=== PATIENT | female | born 1950 | race African-American/Black ===

== ENCOUNTER 2019-05-28 13:35 | Emergency (ER) | payer OTHER, MEDICARE ==
[2019-05-28 13:55] VITALS: BP 152/82
--- NOTE | 2019-05-28 14:04 | Emergency Department Report ---
ED Rash HPI - HPI Chief Complaint: Skin Rash Stated Complaint: BUGS IN HEAD/DOC SENT Time Seen by Provider: 05/28/19 13:59 Duration: 1 year Suspected Cause: Unknown Rash Symptoms: Yes Peeling (small scabs noted to back without infection), No Itching, No Facial Swelling, No Tongue/Oral Swelling, No Breathing Difficulties, No Choking Sensation, No Wheezing/Dyspnea, No Blistering, No Fever, No L ightheaded, No Malaise, No Myalgias Other History: Patient here reports bugs at home and saw bug. Reports that [employer] man told her she has scabies. No bed bugs at home. Report that she went to assessment manager was given medication which helps. Reports itching without any respiratory symptoms. Denies fever or chill. reports bug with blood found. reports allergy testing. ED Review of Systems ROS: Stated complaint: BUGS IN HEAD/DOC SENT Other details as noted in HPI Constitutional: denies: chills, fever ENT: denies: throat pain, congestion Respiratory: denies: cough, shortness of breath, SOB with exertion, wheezing Cardiovascular: denies: chest pain, palpitations, edema, syncope Gastrointestinal: denies: abdominal pain, nausea, vomiting Musculoskeletal: denies: back pain, joint swelling, arthralgia Skin: pruritus Neurological: denies: headache, weakness, paresthesias, abnormal gait, vertigo ED Past Medical Hx - Past Medical History Previous Medical History?: No - Surgical History Past Surgical History?: No - Family History Family history: hypertension - Social History Smoking Status: Never Smoker Substance Use Type: None - Medications Home Medications: Home Medications Medication Instructions Recorded Confirmed Last Taken Type hydrOXYzine HCL [Atarax] 25 mg PO Q8H PRN #12 tablet 05/28/19 Unknown Rx methylPREDNISolone [Medrol 4MG 4 mg PO QAM 6 Days #1 tab.ds.pk 05/28/19 Unknown Rx DOSEPAK (21 tabs)] Rash Exam - Exam General: Vital signs noted. No distress. Alert and acting appropriately. This 68-year-old female well-nourished well-developed in no acute distress HEENT: No Periorbital Edema, No Conjuctival Injection, No Chemosis, No Perioral Edema, No Tongue Edema, No Uvular Edema, No Compromised Airway, No Drooling Lungs: Yes Good Air Exchange, No Wheezes, No Ronchi, No Stridor, No Cough, No Labored Respirations, No Retractions, No Use of Accessory Muscles, No Other Abnormal Lung Sounds Heart: Yes Regular, No Murmur Skin: No Urticarial Rash, No Maculopapular Rash, No Morbilliform rash, No Bulla(e), No Excoriations, No Weeping, No Tenderness, No Erythema, No Edema, No Encrustations, No Other Other: Positive: Abdomen Normal, Neurologic Normal, Musculoskeletal Normal ED Course Vital Signs 05/28/19 13:54 Temperature 98.7 F Pulse Rate 89 Respiratory 18 Rate Blood Pressure 152/82 [Left] O2 Sat by Pulse 96 Oximetry - Reevaluation(s) Reevaluation #1: 05/28/19 14:04 Patient stable no distress ED Medical Decision Making - Medical Decision Making Patient with pruritus and possible exposure to bug. She said that she caught one of the bottom of the bottle had blood in it which is suspicious for bedbugs. Bedbug prevention instructions given. Critical care attestation.: If time is entered above; I have spent that time in minutes in the direct care of this critically ill patient, excluding procedure time. ED Disposition Clinical Impression: Pruritic condition Contact dermatitis Qualifiers: Contact dermatitis type: allergic Contact dermatitis trigger: other trigger Qualified Code(s): L23.89 - Allergic contact dermatitis due to other agents Disposition: DC-01 TO HOME OR SELFCARE Is pt being admited?: No Does the pt Need Aspirin: No Condition: Stable Instructions: Contact Dermatitis (ED), Itchy Skin (ED) Additional Instructions: Please see assessment manager Take medication as prescribed If, condition worsens, please return to ED Prescriptions: hydrOXYzine HCL [Atarax] 25 mg PO Q8H PRN #12 tablet PRN Reason: Itching methylPREDNISolone [Medrol 4MG DOSEPAK (21 tabs)] 4 mg PO QAM 6 Days #1 tab.ds.pk Referrals: MERRY DEL TORO MD [Staff Physician] - 3-5 Days Forms: Work/School Release Form(ED)
== END 2019-05-28 14:30 | disposition home or self-care (01) ==
LOC: ED 13:35
DX: L25.9 Unspecified contact dermatitis, unspecified cause (principal)
CPT/HCPCS: 99281